=== PATIENT | female | born 1950 | race African-American/Black ===

== ENCOUNTER 2016-12-08 22:33 | Emergency (ER) | payer BC ==
[~2016-12-08 22:33] MED LIST: CENTRUM PO; DIOVAN40 MG PO; LIPITOR40 PO; NORCO1 TA1 PO; PRILO PO; SUCR PO
[2016-12-08 22:46] LABS: BASOPHILS 0.3 %; BASOPHILS ABSOLUTE 0.03 10/3/uL (0.0-0.16); EOSINOPHILS 0.8 %; EOSINOPHILS ABSOLUTE 0.09 10/3/uL (0.0-0.53); ER CBC TAT 0 Hrs 00 Mins; IMMATURE GRANULOCYTES ABSOLUTE 0.22 10/3/uL (0.0-0.11); LYMPHOCYTES 15.8 %; MEAN CORPUS HGB CONC 32.3 g/dL (32.0-36.0); MEAN CORPUSCULAR HEMOGLOB 28.2 pg (26.0-34.0); MEAN CORPUSCULAR VOLUME 87.4 fL (80-100); MEAN PLATELET VOLUME 10.6 fL (9.2-13.0); MONOCYTES 4.8 %; MONOCYTES ABSOLUTE 0.52 10/3/uL (0.21-1.20); NEUTROPHILS 76.3 %; NEUTROPHILS ABSOLUTE 8.21 10/3/uL (2.02-8.40); NUCLEATED RED BLOOD CELLS 0.7 /100WBC (0-0); RBC DISTRIBUTION WIDTH 17.3 % (12.0-16.0); WHITE BLOOD CELLS 10.8 10/3/uL (4.5-10.5)
[2016-12-08 22:49] LABS: HEMATOCRIT 38.7 % (36.0-48.0); HEMOGLOBIN 12.5 g/dL (12.0-16.0); MANUAL DIFF NO %; PLATELET COUNT 219 10/3/uL (150-400); RED CELL COUNT 4.43 10/6/uL (4.0-5.6)
[2016-12-08 23:01] LABS: CALCIUM, SERUM 8.8 MG/DL (8.5-10.4); CHLORIDE, SERUM 108 MMOL/L (96-112); CO2 (CARBON DIOXIDE) 21 MMOL/L (24-34); CREATININE 1.83 MG/DL (0.55-1.02); GFR AFRICAN AMERICAN 33 ML/MIN (>=60); GFR NON AFRICAN AMERICAN 28 ML/MIN (>=60); POTASSIUM, SERUM 3.7 MMOL/L (3.5-5.3); SGPT(ALT) 40 U/L (5-65); SODIUM, SERUM 142 MMOL/L (135-148)
[2016-12-08 23:02] LABS: A/G RATIO 0.6 (0.7-1.9); ALBUMIN 2.6 G/DL (3.5-5.0); ALKALINE PHOSPHATASE 169 U/L (45-117); BUN (BLOOD UREA NITROGEN) 27 MG/DL (6-23); DIRECT BILIRUBIN 0.5 MG/DL (0.0-0.4); GLOBULIN 4.4 G/DL (2.5-4.1); GLUCOSE, SERUM 215 MG/DL (60-99); INDIRECT BILIRUBIN(NOT ORDER) 0.6 MG/DL (0.1-0.9); SGOT(AST) 39 U/L (5-40); TOTAL BILIRUBIN 1.1 MG/DL (0-1.2)
[2016-12-08 23:45] LABS: SED RATE 28 MM/HR (0-20)
== END 2016-12-08 23:53 | disposition home or self-care (01) ==
LOC: ER 22:33
PROVIDERS: Emergency Medicine
DX: M25.562 Pain in left knee (principal); M25.561 Pain in right knee; B19.20 Unspecified viral hepatitis C without hepatic coma; E10.9 Type 1 diabetes mellitus without complications; I10 Essential (primary) hypertension; Z88.8 Allergy status to other drugs, medicaments and biological substances; Z79.899 Other long term (current) drug therapy
CPT/HCPCS: 80053; 82248; 85025; 85652; 87040; 99283; A9270-GY